=== PATIENT | female | born 1990 | race African-American/Black ===

== ENCOUNTER 2019-08-10 20:19 | Outpatient (CLI) | payer MEDICAID ==
[2016-05-16 19:28] VITALS: BMI 32.7
[~2019-08-10 20:19] MED LIST: IBUPROFEN600 MG PO; PERCOCET 5-3251 TAB PO; PRENAVITE1 TAB PO
[2019-08-10 21:01] LABS: APPEARANCE HAZY (CLEAR); BILIRUBIN NEGATIVE (NEGATIVE); COLOR YELLOW (YELLOW); GLUCOSE NEGATIVE (NEGATIVE); KETONE NEGATIVE (NEGATIVE); NITRITE NEGATIVE (NEGATIVE); PROTEIN TRACE mg/dL (NEGATIVE); SPECIFIC GRAVITY 1.015 (1.005-1.020); UROBILINOGEN NORMAL (NORMAL)
[2019-08-10 21:07] LABS: BACTERIA FEW /hpf (NEGATIVE); EPITHELIAL CELLS 0-5 /hpf (0-5); RED CELLS - URINE 0-5 /hpf (0-5)
[2019-08-10 21:13] LABS: UDS - AMPHET NEGATIVE QUAL (NEGATIVE); UDS - BARB NEGATIVE QUAL (NEGATIVE); UDS - BENZO NEGATIVE QUAL (NEGATIVE); UDS - COCAINE NEGATIVE QUAL (NEGATIVE); UDS - OPIATE NEGATIVE QUAL (NEGATIVE); UDS - PCP NEGATIVE QUAL (NEGATIVE); UDS - THC NEGATIVE QUAL (NEGATIVE)
== END 2019-08-10 21:27 ==
LOC: D.LDO 20:19
PROVIDERS: ATTEND Student in an Organized Health Care Education/Training Program
DX: O26.853 Spotting complicating pregnancy, third trimester (principal); Z3A.32 32 weeks gestation of pregnancy

== ENCOUNTER 2019-09-13 07:33 | Outpatient (CLI) | payer MEDICAID ==
[2016-05-16 19:28] VITALS: BMI 32.7
== END 2019-09-13 09:30 | disposition left against medical advice (07) ==
LOC: D.LDO 07:33
PROVIDERS: ATTEND Obstetrics & Gynecology
DX: O26.893 Other specified pregnancy related conditions, third trimester (principal); Z3A.37 37 weeks gestation of pregnancy; N85.8 Other specified noninflammatory disorders of uterus